=== PATIENT | female | born 1940 | race Caucasian/White ===

== ENCOUNTER → 2017-04-03 | Outpatient (CLI) | payer MEDICARE, OTHER ==
[~2017-04-03] MED LIST: ASPIRIN PO; EFFEXOR XR PO; EYE DROPS; FEMARA2.5 MG PO; FLAX SEED OIL1000 M1 PO; FOSAMAX PO; KEFLEX PO; LIPITOR PO; MULTIVITAMIN W/1 TAB PO; NAPROXEN PO; NEXIUM PO; PERCOCET5/325 PO; PHENERGAN PR; PRAVACHOL PO; VICODIN 5/500 T1 TAB PO; VITAMIN D31000 UNI1 PO; VYTORIN 10-10 M1 TAB PO; ZETIA PO
--- NOTE | ~2017-04-03 | MY10 ---
[facility] A Service of [facility] RADIOLOGY TEXT RESULTS PATIENT: KARTIK BLUM LOCATION: [facility] : 44 UNIT #: [id number] AGE: [address]: Bennett Pate MD SEX: F ORDER DR: [id number] [address] [address] [id number] O MR#: [id number] Acc #: [id number] NAME: KARTIK BLUM : 1940 SEX: F STUDY DATE/TIME: 04/03/2017 11:02 UNIT: [facility] ROOM: STUDY DESCRIPTION: MY Mammogram Screen Uni Dig Rt Attending Physician: Bennett Pate M.D. Referring Physician: Bennett Pate M.D. Ordering Physician: Bennett Pate M.D. Primary Care Physician: Bennett Pate M.D. MEDICAL IMAGING REPORT This report is preliminary unless electronic signature is present. EXAM Unilateral right digital screening mammogram 04/03/2017 [facility] HISTORY 76-year-old woman status post left mastectomy age 64. Annual screening. COMPARISON Mammograms date to 05/18/2006 with most recent screening comparison 03/17/2016. FINDINGS Digital imaging of the right breast was completed utilizing three-view protocol. Review includes FDA-approved CAD device. Breast parenchyma is partially fatty replaced with a minimal residual fibroglandular opacity noted. There is no breast mass. There are no interval occurring microcalcifications and no suspicious architectural deformity. IMPRESSION Negative unilateral right mammogram. Status post left mastectomy. Annual screening recommended. Patients over the age of 40 are entered into a reminder system with target due date for the next mammogram. A result letter will also be sent to the patient. BIRADS: 1 Negative. Dictated by... Irving Medrano M.D. THIS IS AN ELECTRONICALLY VERIFIED REPORT Irving Medrano M.D. at 04/03/2017 2:01 PM LUIGI/kathe [facility] A Service of [facility] RADIOLOGY TEXT RESULTS PATIENT: KARTIK BLUM LOCATION: [facility] : 44 UNIT #: [id number] AGE: [address]: Bennett Pate MD SEX: F ORDER DR: TD: 04/03/2017 13:08 JOB #: [id number] MEDICAL IMAGING REPORT Page 1 of 1
== END | disposition home or self-care (01) ==
LOC: SMAM 10:02
DX: Z12.31 Encounter for screening mammogram for malignant neoplasm of breast (principal); Z90.12 Acquired absence of left breast and nipple
CPT/HCPCS: G0202